=== PATIENT | male | born 1995 | race Caucasian/White ===

== ENCOUNTER 2021-09-06 00:29 | Emergency (ER) | payer OTHER ==
[~2021-09-06] VITALS: Ht 182.9 cm; Wt 106.6 kg
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
[2021-09-06] MEDS ORDERED: HYDROCODONE/APAP 5/325MG TABLET ONE (04:09)
[2021-09-06 04:12] VITALS: BP 145/70
--- NOTE | 2021-09-06 04:12 | NUR ---
Patient discharged to home in stable condition. Written and verbal after care instructions given. Patient verbalizes understanding of instruction.
[2021-09-06] MEDS ORDERED: HYDROCODONE/APAP 5/325MG TABLET PO ONE (04:30)
== END 2021-09-06 04:13 | disposition home or self-care (01) ==
LOC: ER 00:50
DX: S01.01XA Laceration without foreign body of scalp, initial encounter (principal); W05.1XXA Fall from non-moving nonmotorized scooter, initial encounter; Y93.89 Activity, other specified; Y92.89 Other specified places as the place of occurrence of the external cause; Y99.8 Other external cause status
CPT/HCPCS: 12004; 70450; 72125; 99284; A6403 ×3